=== PATIENT | male | born 1990 | race African-American/Black ===

== ENCOUNTER 2017-03-10 11:24 | Inpatient (IN) | payer OTHER ==
[~2017-03-10] VITALS: Ht 180.3 cm; Wt 67.1 kg
[2017-03-10] MEDS ORDERED: LATUDA20 MG PO (11:26)
[2017-03-10] MEDS ORDERED: GABAPENTIN300 MG ORAL (11:26)
[2017-03-10 11:39] VITALS: BP 126/60
[2017-03-10] MEDS ORDERED: levETIRAcetam 500mg vial IV ONE (11:39)
[2017-03-10] MEDS ORDERED: levETIRAcetam 500 MG in D5W 110 ML IV ONE (11:45)
[2017-03-10 11:57] LABS: BASOPHILS % (AUTO) 3.1 % (0.0-2.0); EOSINOPHILS % (AUTO) 2.4 % (0.0-3.0); MEAN CORPUSCULAR HEMOGLOBIN 28.9 PG (27.0-31.0); MEAN CORPUSCULAR HGB CONC 31.9 G/DL (32.0-36.0); MEAN CORPUSCULAR VOLUME 91 FL (80-99); MEAN PLATELET VOLUME 6.7 FL (6.5-10.1); MONOCYTES % (AUTO) 10.6 % (1.0-10.0); NEUTROPHILS % (AUTO) 42.9 % (45.0-75.0); PLATELET COUNT 248 K/UL (150-450); RED BLOOD COUNT 4.95 M/UL (4.70-6.10); WHITE BLOOD COUNT 4.9 K/UL (4.8-10.8)
[2017-03-10 12:03] VITALS: BP 109/62
[2017-03-10 12:07] LABS: ACETAMINOPHEN < 10 ug/mL (10-30); ALANINE AMINOTRANSFERASE 11 U/L (3-41); ALBUMIN/GLOBULIN RATIO 1.6 (1.0-2.7); ALCOHOL < 10 mg/dL; ANION GAP 18 (5-15); ASPARTATE AMINO TRANSFERASE 21 U/L (5-40); CALCIUM 9.5 mg/dL (8.6-10.2); CARBON DIOXIDE 18 mEQ/L (20-30); CHLORIDE 99 mEQ/L (98-107); CREATININE 1.3 mg/dL (0.7-1.2); GLOMERULAR FILTRATION RATE > 60 mL/min (>60); HEMOLYSIS 81; POTASSIUM 5.3 mEQ/L (3.4-4.9); SODIUM 135 mEQ/L (135-145); TOTAL PROTEIN 7.1 g/dL (6.6-8.7)
[2017-03-10] MEDS ORDERED: KEPPRA500 M4 ORAL (13:24)
[2017-03-10 13:30] VITALS: BP 98/57
[2017-03-10] MEDS ORDERED: Morphine Sulfate 4mg/ml Inj IVP ONE ×2 (14:00→16:00)
[2017-03-10 14:07] LABS: TROPONIN I < 0.30 ng/mL (<=0.30)
[2017-03-10 15:46] VITALS: BP 99/47
[2017-03-10 16:13] LABS: TROPONIN I < 0.30 ng/mL (<=0.30)
[2017-03-10] MEDS ORDERED: Sodium Polystyrene Sulfonate 15gm Powder ORAL ONE (16:30)
--- NOTE | 2017-03-10 16:38 | Emergency Room Report ---
History of Present Illness General Chief Complaint: Seizure Source: Patient, EMS Present Illness HPI 27-year-old male presents ED status post seizure. Patient had witnessed seizure at home which lasted several seconds. patient was sitting did not fall and hit his head. Patient states he takes Keppra for his seizures. Has not missed a dose. Denies any headache, blurry vision, nausea or vomiting. Denies any fevers or chills. Denies drug use. No other aggravating or leading factors. Denies any other associated symptom Allergies: Coded Allergies: PENICILLINS (Verified Allergy, Unknown, 03/10/17) Patient History Past Medical History: seizures, psych hx Past Surgical History: none Pertinent Family History: none Social History: Denies: alcohol use, drug use, smoking Immunizations: UTD Reviewed Nursing Documentation: PMH: Agreed, PSxH: Agreed Nursing Documentation-PMH Past Medical History: No Stated History History Of Psychiatric Problem: Yes - Bipolar Review of Systems All Other Systems: negative except mentioned in HPI Physical Exam Vital Signs Date Time Temp Pulse Resp B/P Pulse Ox O2 Delivery O2 Flow Rate FiO2 03/10/17 11:20 Room Air 03/10/17 11:39 98.7 77 18 126/60 97 Sp02 EP Interpretation: reviewed, normal General Appearance: no apparent distress, alert, GCS 15, non-toxic Head: normocephalic, atraumatic Eyes: bilateral eye PERRL, bilateral eye normal inspection ENT: hearing grossly normal, normal pharynx, no angioedema, normal voice Neck: full range of motion, supple/symm/no masses Respiratory: chest non-tender, lungs clear, normal breath sounds, speaking full sentences Cardiovascular #1: regular rate, rhythm, no edema Cardiovascular #2: 2+ carotid (R), 2+ carotid (L), 2+ radial (R), 2+ radial (L) , 2+ dorsalis pedis (R), 2+ dorsalis pedis (L) Gastrointestinal: normal bowel sounds, non tender, soft, non-distended, no guarding, no rebound Rectal: deferred Genitourinary: normal inspection, no CVA tenderness Musculoskeletal: back normal, gait/station normal, normal range of motion, non- tender Neurologic: alert, oriented x3, responsive, motor strength/tone normal, sensory intact, speech normal Psychiatric: judgement/insight normal, memory normal, mood/affect normal, no suicidal/homicidal ideation Reflexes: 3+ bicep (R), 3+ bicep (L), 3+ tricep (R), 3+ tricep (L), 3+ knee (R) , 3+ knee (L) Skin: normal color, no rash, warm/dry, well hydrated Lymphatic: no adenopathy Medical Decision Making Diagnostic Impression: Primary Impression: Seizure disorder Additional Impressions: Chest pain Qualified Codes: R07.9 - Chest pain, unspecified Hyperkalemia, diminished renal excretion ER Course Hospital Course 27-year-old M presents to ED status post seizure. Differential diagnosis includes- breakthrough seizure, alcohol abuse, noncompliance with medication Clinical course Patient placed on stretcher. Initial history and physical I ordered labs, IV fluids, IV Keppra Labs- K 5.3, Cr 1.3, leukocytosis noted, hemoglobin/hematocrit stable. EKG shows diffuse ST elevation. Pathology consistent with early repolarization. No reciprocal changes. However on reassessment patient is complaining of chest pain. Pain is midsternal, reproducible I sent had an troponins initial labs. Troponin was negative. Repeat troponin is pending Patient given morphine for chest pain but pain persists. We will admit Given Kayexalate Case discussed with Dr. Holguin and he agreed to accept the patient to his service for further care and support. i. I feel this is a highly complex case requiring extensive working including EKG/Rhythm strip, Xray/CT/US, Blood/urine lab work, repeat exams while in ED, and administration of strong opiates/narcotics for pain control, admission to hospital or close patient follow up. Diagnosis - seizure, chest pain, hyperkalemia diminished renal excretion admitted to telemetry in serious condition Labs Test 03/10/17 10:30 03/10/17 14:19 03/10/17 15:45 White Blood Count 4.9 K/UL (4.8-10.8) Red Blood Count 4.95 M/UL (4.70-6.10) Hemoglobin 14.3 G/DL (14.2-18.0) Hematocrit 44.9 % (42.0-52.0) Mean Corpuscular Volume 91 FL (80-99) Mean Corpuscular Hemoglobin 28.9 PG (27.0-31.0) Mean Corpuscular Hemoglobin Concent 31.9 G/DL (32.0-36.0) Red Cell Distribution Width 14.0 % (11.6-14.8) Platelet Count 248 K/UL (150-450) Mean Platelet Volume 6.7 FL (6.5-10.1) Neutrophils (%) (Auto) 42.9 % (45.0-75.0) Lymphocytes (%) (Auto) 41.0 % (20.0-45.0) Monocytes (%) (Auto) 10.6 % (1.0-10.0) Eosinophils (%) (Auto) 2.4 % (0.0-3.0) Basophils (%) (Auto) 3.1 % (0.0-2.0) Sodium Level 135 mEQ/L (135-145) Potassium Level 5.3 mEQ/L (3.4-4.9) Chloride Level 99 mEQ/L (98-107) Carbon Dioxide Level 18 mEQ/L (20-30) Anion Gap 18 (5-15) Blood Urea Nitrogen 11 mg/dL (7-23) Creatinine 1.3 mg/dL (0.7-1.2) Estimat Glomerular Filtration Rate > 60 mL/min (>60) Glucose Level 145 mg/dL (74-106) Calcium Level 9.5 mg/dL (8.6-10.2) Total Bilirubin 0.3 mg/dL (0.0-1.2) Aspartate Amino Transf (AST/SGOT) 21 U/L (5-40) Alanine Aminotransferase (ALT/SGPT) 11 U/L (3-41) Alkaline Phosphatase 53 U/L (40-129) Troponin I < 0.30 ng/mL (<=0.30) < 0.30 ng/mL (<=0.30) Total Protein 7.1 g/dL (6.6-8.7) Albumin 4.4 g/dL (3.5-5.2) Globulin 2.7 g/dL Albumin/Globulin Ratio 1.6 (1.0-2.7) Salicylates Level < 1 mg/dL (10-30) Acetaminophen Level < 10 ug/mL (10-30) Serum Alcohol < 10 mg/dL Urine Opiates Screen Negative (NEGATIVE) Urine Barbiturates Screen Negative (NEGATIVE) Phencyclidine (PCP) Screen Negative (NEGATIVE) Urine Amphetamines Screen Negative (NEGATIVE) Urine Benzodiazepines Screen Negative (NEGATIVE) Urine Cocaine Screen Negative (NEGATIVE) Urine Marijuana (THC) Screen Positive (NEGATIVE) EKG Diagnostic Results Rate: normal Rhythm: NSR ST Segments: other - diffuse ST elevations, early repolarization ASA given to the pt in ED: Yes Rhythm Strip Diag. Results EP Interpretation: yes Rhythm: NSR, no PVC's, no ectopy Chest X-Ray Diagnostic Results Chest X-Ray Diagnostic Results : Chest X-Ray Ordered: Yes # of Views/Limited/Complete: 1 View Indication: Chest Pain EP Interpretation: Yes Interpretation: no consolidation, no effusion, no pneumothorax, no acute cardiopulmonary disease Impression: No acute disease Interpreting ER Provider: Electronically signed by Sean Bautista MD Last Vital Signs Date Time Temp Pulse Resp B/P Pulse Ox O2 Delivery O2 Flow Rate FiO2 03/10/17 15:46 97.8 48 14 99/47 98 Room Air Status: improved Disposition: HOME, SELF-CARE Condition: Stable Scripts Levetiracetam (KEPPRA) 500 Mg Tablet 500 MG ORAL TID for 30 Days, #90 TAB 0 Refills Prov: SEAN BAUTISTA M.D. 03/10/17 Referrals: CHACORTA MONSIVAIS,REFERRI (PCP) Patient Instructions: Seizure, Adult SEAN BAUTISTA M.D. Mar 10, 2017 16:38
[2017-03-10] MEDS ORDERED: Diltiazem 25mg/5ml IV PRN (16:45)
[2017-03-10] MEDS ORDERED: DuoNeb 0.5-3(2.5)mg/3ml neb HHN PRN (16:45)
[2017-03-10] MEDS ORDERED: Miralax 17gm pkt ORAL PRN (16:45)
[2017-03-10] MEDS ORDERED: Enalaprilat 2.5mg/2ml Inj IV PRN (16:45)
[2017-03-10] MEDS ORDERED: Nitroglycerin Subl 0.4mg tab (Bottle Of 25) SL PRN (16:45)
[2017-03-10] MEDS ORDERED: Ketorolac 30mg Inj IV PRN (16:45)
[2017-03-10 17:00] VITALS: BP 100/64
[2017-03-10 18:30] VITALS: BP 94/53
--- NOTE | 2017-03-10 21:03 | Consultation ---
History of Present Illness General Date patient seen: Mar 10, 2017 Chief Complaint: Seizure Reason for Consultation: seizures Present Illness HPI 27-year-old male with PMHx of of seizures presented to ED status post seizure. Patient had witnessed seizure at home which lasted several seconds. patient was sitting did not fall and hit his head. Patient states he takes Keppra for his seizures. No other aggravating or leading factors. Pt is admitted to telemetry . Allergies: Coded Allergies: EGG (Verified Allergy, Unknown, 03/11/17) FISH CONTAINING PRODUCTS (Verified Allergy, Unknown, 03/11/17) PENICILLINS (Verified Allergy, Unknown, 03/10/17) Uncoded Allergies: Mashroom (Allergy, Unknown, 03/11/17) Medication History Scheduled Gabapentin* (Gabapentin*), 300 MG ORAL THREE TIMES A DAY, (Reported) Levetiracetam (Keppra), 500 MG ORAL TID Lurasidone Hcl (Latuda), 20 MG PO BEDTIME, (Reported) Patient History Healthcare decision maker Resuscitation status Advanced Directive on File Past Medical/Surgical History Past Medical/Surgical History: (1) Seizure disorder Review of Systems All Other Systems: negative except mentioned in HPI Physical Exam General Appearance: WD/WN, no apparent distress Lines, tubes and drains: peripheral HEENT: normocephalic, atraumatic Neck: non-tender, normal alignment, supple Respiratory/Chest: chest wall non-tender, lungs clear Cardiovascular/Chest: normal rate Genitourinary/Rectal: normal genital exam, normal rectal exam Extremities: normal range of motion Last 24 Hour Vital Signs Date Time Temp Pulse Resp B/P Pulse Ox O2 Delivery O2 Flow Rate FiO2 03/10/17 20:00 50 15 101/59 100 Room Air 03/10/17 18:30 98.1 50 15 94/53 98 Room Air 03/10/17 17:00 55 16 100/64 100 Room Air 03/10/17 15:46 97.8 48 14 99/47 98 Room Air 03/10/17 14:44 98.7 03/10/17 13:30 53 19 98/57 99 Room Air 03/10/17 12:03 67 18 109/62 99 Room Air 03/10/17 11:39 71 18 Room Air 03/10/17 11:39 98.7 77 18 126/60 97 Room Air 03/10/17 11:20 Room Air Laboratory Tests Test 03/10/17 10:30 03/10/17 14:19 03/10/17 15:45 White Blood Count 4.9 K/UL (4.8-10.8) Red Blood Count 4.95 M/UL (4.70-6.10) Hemoglobin 14.3 G/DL (14.2-18.0) Hematocrit 44.9 % (42.0-52.0) Mean Corpuscular Volume 91 FL (80-99) Mean Corpuscular Hemoglobin 28.9 PG (27.0-31.0) Mean Corpuscular Hemoglobin Concent 31.9 G/DL (32.0-36.0) L Red Cell Distribution Width 14.0 % (11.6-14.8) Platelet Count 248 K/UL (150-450) Mean Platelet Volume 6.7 FL (6.5-10.1) Neutrophils (%) (Auto) 42.9 % (45.0-75.0) L Lymphocytes (%) (Auto) 41.0 % (20.0-45.0) Monocytes (%) (Auto) 10.6 % (1.0-10.0) H Eosinophils (%) (Auto) 2.4 % (0.0-3.0) Basophils (%) (Auto) 3.1 % (0.0-2.0) H Sodium Level 135 mEQ/L (135-145) Potassium Level 5.3 mEQ/L (3.4-4.9) H Chloride Level 99 mEQ/L (98-107) Carbon Dioxide Level 18 mEQ/L (20-30) L Anion Gap 18 (5-15) H Blood Urea Nitrogen 11 mg/dL (7-23) Creatinine 1.3 mg/dL (0.7-1.2) H Estimat Glomerular Filtration Rate > 60 mL/min (>60) Glucose Level 145 mg/dL (74-106) H Calcium Level 9.5 mg/dL (8.6-10.2) Total Bilirubin 0.3 mg/dL (0.0-1.2) Aspartate Amino Transf (AST/SGOT) 21 U/L (5-40) Alanine Aminotransferase (ALT/SGPT) 11 U/L (3-41) Alkaline Phosphatase 53 U/L (40-129) Troponin I < 0.30 ng/mL (<=0.30) < 0.30 ng/mL (<=0.30) Total Protein 7.1 g/dL (6.6-8.7) Albumin 4.4 g/dL (3.5-5.2) Globulin 2.7 g/dL Albumin/Globulin Ratio 1.6 (1.0-2.7) Salicylates Level < 1 mg/dL (10-30) L Acetaminophen Level < 10 ug/mL (10-30) L Serum Alcohol < 10 mg/dL Urine Opiates Screen Negative (NEGATIVE) Urine Barbiturates Screen Negative (NEGATIVE) Phencyclidine (PCP) Screen Negative (NEGATIVE) Urine Amphetamines Screen Negative (NEGATIVE) Urine Benzodiazepines Screen Negative (NEGATIVE) Urine Cocaine Screen Negative (NEGATIVE) Urine Marijuana (THC) Screen Positive (NEGATIVE) H Height (Feet): 5 Height (Inches): 11.00 Weight (Pounds): 160 Medications Current Medications Medications (Trade) Dose Ordered Sig/Robyn Route PRN Reason Start Time Stop Time Status Last Admin Dose Admin Acetaminophen (Tylenol) 650 mg Q4H PRN ORAL FEVER 03/10/17 16:45 04/09/17 16:44 Albuterol/ Ipratropium (DuoNeb 0.5-3(2.5)mg/3ml) 3 ml Q4H PRN HHN Shortness of Breath 03/10/17 16:45 03/15/17 16:44 Aspirin (ASA) 162 mg DAILY ORAL 03/11/17 09:00 04/10/17 08:59 Diltiazem HCl (Cardizem) 10 mg Q1H PRN IV heart rate more than 120, 03/10/17 16:45 04/09/17 16:44 Enalaprilat (Vasotec) 2.5 mg Q6H PRN IV sbp more than 160 03/10/17 16:45 04/09/17 16:44 Heparin Sodium (Porcine) (Heparin 5000 units/ml) 5,000 units EVERY 12 HOURS SUBQ 03/10/17 21:00 04/09/17 20:59 Ketorolac Tromethamine (Toradol 30mg) 30 mg Q6H PRN IV moderate pain ( 4-6) 03/10/17 16:45 03/15/17 16:44 Levetiracetam (Keppra) 500 mg TID ORAL 03/10/17 18:00 04/09/17 17:59 03/10/17 18:47 Morphine Sulfate (Morphine Sulfate) 2 mg Q4H PRN IVP severe Pain (Pain Scale 7-10) 03/10/17 16:45 03/17/17 16:44 Nitroglycerin (Ntg) 0.4 mg Every 5 Minutes PRN SL Prn Chest Pain 03/10/17 16:45 04/09/17 16:44 Ondansetron HCl (Zofran) 4 mg Q6H PRN IVP Nausea & Vomiting 03/10/17 16:45 04/09/17 16:44 Pantoprazole (Protonix) 40 mg DAILY ORAL 03/11/17 09:00 04/10/17 08:59 Polyethylene Glycol (Miralax) 17 gm DAILYPRN PRN ORAL Constipation 03/10/17 16:45 04/09/17 16:44 Temazepam (Restoril) 15 mg HSPRN PRN ORAL Insomnia 03/10/17 16:45 03/17/17 16:44 Assessment/Plan Problem List: (1) Seizure disorder ICD Codes: G40.909 - Epilepsy, unspecified, not intractable, without status epilepticus SNOMED: 154664827 (2) Hyperkalemia, diminished renal excretion ICD Codes: E87.5 - Hyperkalemia SNOMED: [id number] Assessment/Plan Neuro evaluation renal studies echo dc home when ok with neurology NIKKI HERNANDEZ Mar 10, 2017 21:03
[2017-03-10] MEDS: Heparin 5000 units/ml inj SUBQ SCH (22:17)
[2017-03-10] MEDS: Morphine Sulfate 2mg/ml Inj IVP PRN (22:32)
[2017-03-11] VITALS: BP 123/77
--- NOTE | 2017-03-11 03:45 | Consultation ---
DATE OF CONSULTATION: 03/10/2017 NEPHROLOGY CONSULTATION REFERRING PHYSICIAN: Peter Holguin D.O. REASON FOR CONSULTATION: Hyperkalemia and acute renal failure. HISTORY OF PRESENT ILLNESS: The patient is a 27-year-old male with past medical history significant for history of seizure disorder and possible bipolar disease, who presented to [facility] after he had witnessed few second tonoclonic seizure. The patient apparently has been taking his antiseizure medication including Keppra . He was brought in to the ER for evaluation of breakthrough seizures. He denies having any nausea, vomiting, blurry vision, fever, chills, headache, neck stiffness, or any other symptoms prior to his seizure. PAST MEDICAL HISTORY: 1. History of seizure. 2. History of bipolar disease. ALLERGIES: He is allergic to penicillin. SOCIAL HISTORY: Denies any history of tobacco, alcohol, or drug use. FAMILY HISTORY: Negative for history of kidney disease. REVIEW OF SYSTEMS: General: He complained of generalized weakness. Denied any fever, chills, or night sweats. Head and Neck: Denies any dysphagia, odynophagia, blurry vision, headache, or neck stiffness. Pulmonary: No shortness of breath. No cough or sputum. Cardiovascular: Denies any chest pain or palpitation. Gastrointestinal: Denies any nausea, vomiting, diarrhea, hematemesis, or hematochezia. Genitourinary: Denies any dysuria, frequency, or hematuria. Musculoskeletal: He complained of generalized weakness. Denies any numbness. PHYSICAL EXAMINATION: VITAL SIGNS: The patient has temperature of 98 degrees, blood pressure of 126/60, pulse rate of 97, and respiratory rate of 18. HEAD AND NECK: No JVP. No LAD. No thyromegaly. Extraocular movement intact. Pupils are reactive to light and accommodation. LUNGS: Clear to auscultation. CARDIAC: Regular rate and rhythm. S1 and S2. No murmur. No rub. ABDOMEN: Soft, nontender, and nondistended. EXTREMITIES: No edema. No clubbing. No cyanosis. LABORATORY DATA: Sodium 135, potassium 5.3, chloride 99, bicarbonate 18, BUN 11, creatinine 1.3, glucose 145, and calcium of 9.5. AST of 21, ALT of 11, and alkaline phosphatase 53. Total protein of 7.1. Albumin of 4.4. CBC revealed WBC count of 4.9, hemoglobin of 14.6, hematocrit of 44, and platelet count of 248,000. Urine toxicology screen is negative. Tylenol is negative. is positive. Alcohol is negative and everything else is negative. ASSESSMENT: 1. Hypernatremia. 2. Acute renal failure. ____ acute episode of tonic colonic seizure acidosis, hyperkalemia, and acute renal failure, they are the possibility of prerenal azotemia. 3. History of breakthrough seizure. PLAN: To obtain a UA. Check the CPK level. Check the urine potassium and urine osmolarity to calculate transtubular potassium gradient. To differentiate GI versus renal loss of the potassium. I would place the patient on low-potassium diet, to start the patient on IV fluids. Check a CPK level. Check the UA. Again, I would like to thank Dr. Holguin for allowing me to participate in the care of this patient. Yesenia Sandhu M.D. DR: LETICIA JOB#: [id number] CC:
[2017-03-11 08:00] VITALS: BP 125/71
[2017-03-11 08:08] LABS: BASOPHILS % (AUTO) 1.6 % (0.0-2.0); EOSINOPHILS % (AUTO) 2.9 % (0.0-3.0); MEAN CORPUSCULAR HEMOGLOBIN 29.4 PG (27.0-31.0); MEAN CORPUSCULAR HGB CONC 32.8 G/DL (32.0-36.0); MEAN CORPUSCULAR VOLUME 90 FL (80-99); MEAN PLATELET VOLUME 7.2 FL (6.5-10.1); MONOCYTES % (AUTO) 12.4 % (1.0-10.0); NEUTROPHILS % (AUTO) 38.1 % (45.0-75.0); PLATELET COUNT 219 K/UL (150-450); RED CELL DISTRIBUTION WIDTH 13.6 % (11.6-14.8)
[2017-03-11 08:25] LABS: PROTHROMBIN TIME 10.5 SEC (9.30-11.50)
[2017-03-11 08:36] LABS: TROPONIN I < 0.30 ng/mL (<=0.30)
[2017-03-11 08:40] LABS: THYROID STIMULATING HORMONE 0.875 uIU/mL (0.300-4.500)
[2017-03-11 08:42] LABS: CHOLESTEROL 103 mg/dL (< 200); CHOLESTEROL/HDL RATIO 2.5 (3.3-4.4); CRP QUANT < 0.3 mg/dL (< 0.5); HEMOLYSIS 3; LDL CHOLESTEROL (CALC.) 46 mg/dL (60-99)
[2017-03-11] MEDS ORDERED: Aspirin Baby 81mg ORAL SCH (09:00)
[2017-03-11] MEDS: Morphine Sulfate 2mg/ml Inj IVP PRN ×2 (09:24→20:45)
[2017-03-11] MEDS: Heparin 5000 units/ml inj SUBQ SCH ×2 (09:26→21:00)
--- NOTE | 2017-03-11 10:32 | Diagnostic Imaging Report ---
Indication: Chest pain Technique: One view of the chest Comparison: none Findings: Lungs and pleural spaces are clear. The heart is borderline enlarged. Impression: Borderline cardiomegaly No acute cardiopulmonary process
--- NOTE | 2017-03-11 11:21 | Pulmonology Progress Note ---
Assessment/Plan Problems: (1) Seizure disorder (2) Hyperkalemia, diminished renal excretion Assessment/Plan all reviewed renal studies in process awaiting neuro evaluation Subjective ROS Limited/Unobtainable: No Constitutional: Reports: no symptoms HEENT: Repors: no symptoms Respiratory: Reports: no symptoms Allergies: Coded Allergies: EGG (Verified Allergy, Unknown, 03/11/17) FISH CONTAINING PRODUCTS (Verified Allergy, Unknown, 03/11/17) PENICILLINS (Verified Allergy, Unknown, 03/10/17) Uncoded Allergies: Mashroom (Allergy, Unknown, 03/11/17) Objective Last 24 Hour Vital Signs Date Time Temp Pulse Resp B/P Pulse Ox O2 Delivery O2 Flow Rate FiO2 03/11/17 08:00 97.8 71 21 125/71 96 Room Air 03/11/17 04:00 50 03/11/17 00:00 97.3 53 20 123/77 100 Room Air 03/11/17 00:00 79 03/10/17 20:59 52 03/10/17 20:00 50 15 101/59 100 Room Air 03/10/17 18:30 98.1 50 15 94/53 98 Room Air 03/10/17 17:00 55 16 100/64 100 Room Air 03/10/17 15:46 97.8 48 14 99/47 98 Room Air 03/10/17 14:44 98.7 03/10/17 13:30 53 19 98/57 99 Room Air 03/10/17 12:03 67 18 109/62 99 Room Air 03/10/17 11:39 71 18 Room Air 03/10/17 11:39 98.7 77 18 126/60 97 Room Air Intake and Output 03/10/17 03/11/17 19:00 07:00 Intake Total 225 ml Balance 225 ml Intake Oral 120 ml IV Total 105 ml # Voids 2 General Appearance: WD/WN, no acute distress HEENT: atraumatic, PERRL Respiratory/Chest: chest wall non-tender, lungs clear Cardiovascular: normal peripheral pulses, normal rate Abdomen: normal bowel sounds, soft, non tender, no scars Extremities: no cyanosis, no clubbing Skin: no rash Laboratory Tests 03/10/17 14:19: Urine Opiates Screen Negative, Urine Barbiturates Screen Negative, Phencyclidine (PCP) Screen Negative, Urine Amphetamines Screen Negative, Urine Benzodiazepines Screen Negative, Urine Cocaine Screen Negative, Urine Marijuana (THC) Screen PositiveH 03/10/17 15:45: Troponin I < 0.30 03/11/17 07:15: Troponin I < 0.30, White Blood Count 5.0, Red Blood Count 4.50L, Hemoglobin 13.2L, Hematocrit 40.4L, Mean Corpuscular Volume 90, Mean Corpuscular Hemoglobin 29.4, Mean Corpuscular Hemoglobin Concent 32.8, Red Cell Distribution Width 13.6, Platelet Count 219, Mean Platelet Volume 7.2, Neutrophils (%) (Auto) 38.1L, Lymphocytes (%) (Auto) 45.0, Monocytes (%) (Auto) 12.4H, Eosinophils (%) (Auto) 2.9, Basophils (%) (Auto) 1.6, Prothrombin Time 10.5, Prothromb Time International Ratio 1.0, Activated Partial Thromboplast Time 31, C-Reactive Protein, Quantitative < 0.3, Triglycerides Level 80, Cholesterol Level 103, LDL Cholesterol 46L, HDL Cholesterol 41, Cholesterol/HDL Ratio 2.5L, Thyroid Stimulating Hormone (TSH) 0.875 Current Medications Medications (Trade) Dose Ordered Sig/Robyn Route PRN Reason Start Time Stop Time Status Last Admin Dose Admin Acetaminophen (Tylenol) 650 mg Q4H PRN ORAL FEVER 03/10/17 16:45 04/09/17 16:44 03/11/17 02:07 Albuterol/ Ipratropium (DuoNeb 0.5-3(2.5)mg/3ml) 3 ml Q4H PRN HHN Shortness of Breath 03/10/17 16:45 03/15/17 16:44 Aspirin (ASA) 162 mg DAILY ORAL 03/11/17 09:00 04/10/17 08:59 03/11/17 09:22 Diltiazem HCl (Cardizem) 10 mg Q1H PRN IV heart rate more than 120, 03/10/17 16:45 04/09/17 16:44 Enalaprilat (Vasotec) 2.5 mg Q6H PRN IV sbp more than 160 03/10/17 16:45 04/09/17 16:44 Heparin Sodium (Porcine) (Heparin 5000 units/ml) 5,000 units EVERY 12 HOURS SUBQ 03/10/17 21:00 04/09/17 20:59 03/11/17 09:26 Ketorolac Tromethamine (Toradol 30mg) 30 mg Q6H PRN IV moderate pain ( 4-6) 03/10/17 16:45 03/15/17 16:44 Levetiracetam (Keppra) 500 mg TID ORAL 03/10/17 18:00 04/09/17 17:59 03/11/17 09:22 Morphine Sulfate (Morphine Sulfate) 2 mg Q4H PRN IVP severe Pain (Pain Scale 7-10) 03/10/17 16:45 03/17/17 16:44 03/11/17 09:24 Nitroglycerin (Ntg) 0.4 mg Every 5 Minutes PRN SL Prn Chest Pain 03/10/17 16:45 04/09/17 16:44 Ondansetron HCl (Zofran) 4 mg Q6H PRN IVP Nausea & Vomiting 03/10/17 16:45 04/09/17 16:44 Pantoprazole (Protonix) 40 mg DAILY ORAL 03/11/17 09:00 04/10/17 08:59 03/11/17 09:22 Polyethylene Glycol (Miralax) 17 gm DAILYPRN PRN ORAL Constipation 03/10/17 16:45 04/09/17 16:44 Temazepam (Restoril) 15 mg HSPRN PRN ORAL Insomnia 03/10/17 16:45 03/17/17 16:44 NIKKI HERNANDEZ Mar 11, 2017 11:21
[2017-03-11 12:00] VITALS: BP 122/72
--- NOTE | 2017-03-11 12:37 | Neurology Progress Note ---
Interim History Interim History ROS Limited/Unobtainable: No Objective Physical Exam Last Vital Signs Date Time Temp Pulse Resp B/P Pulse Ox O2 Delivery O2 Flow Rate FiO2 03/11/17 12:00 97.0 67 19 122/72 98 Room Air Laboratory Tests Test 03/10/17 14:19 03/10/17 15:45 03/11/17 07:15 Urine Opiates Screen Negative (NEGATIVE) Urine Barbiturates Screen Negative (NEGATIVE) Phencyclidine (PCP) Screen Negative (NEGATIVE) Urine Amphetamines Screen Negative (NEGATIVE) Urine Benzodiazepines Screen Negative (NEGATIVE) Urine Cocaine Screen Negative (NEGATIVE) Urine Marijuana (THC) Screen Positive (NEGATIVE) H Troponin I < 0.30 ng/mL (<=0.30) < 0.30 ng/mL (<=0.30) White Blood Count 5.0 K/UL (4.8-10.8) Red Blood Count 4.50 M/UL (4.70-6.10) L Hemoglobin 13.2 G/DL (14.2-18.0) L Hematocrit 40.4 % (42.0-52.0) L Mean Corpuscular Volume 90 FL (80-99) Mean Corpuscular Hemoglobin 29.4 PG (27.0-31.0) Mean Corpuscular Hemoglobin Concent 32.8 G/DL (32.0-36.0) Red Cell Distribution Width 13.6 % (11.6-14.8) Platelet Count 219 K/UL (150-450) Mean Platelet Volume 7.2 FL (6.5-10.1) Neutrophils (%) (Auto) 38.1 % (45.0-75.0) L Lymphocytes (%) (Auto) 45.0 % (20.0-45.0) Monocytes (%) (Auto) 12.4 % (1.0-10.0) H Eosinophils (%) (Auto) 2.9 % (0.0-3.0) Basophils (%) (Auto) 1.6 % (0.0-2.0) Prothrombin Time 10.5 SEC (9.30-11.50) Prothromb Time International Ratio 1.0 (0.9-1.1) Activated Partial Thromboplast Time 31 SEC (23-33) C-Reactive Protein, Quantitative < 0.3 mg/dL (< 0.5) Triglycerides Level 80 mg/dL (< 150) Cholesterol Level 103 mg/dL (< 200) LDL Cholesterol 46 mg/dL (60-99) L HDL Cholesterol 41 mg/dL (> 60) Cholesterol/HDL Ratio 2.5 (3.3-4.4) L Thyroid Stimulating Hormone (TSH) 0.875 uIU/mL (0.300-4.500) Impression/Recommendations Recommendations # [id number] MIGNON LARSON Mar 11, 2017 12:37
--- NOTE | 2017-03-11 15:42 | Nephrology Progress Note ---
Assessment/Plan Assessment 1.hyperkalemia 2.arf 3.sz Subjective Constitutional: Reports: no symptoms HEENT: Reports: no symptoms Genitourinary: Reports: no symptoms Neurologic/Psychiatric: Reports: tingling Subjective alert and awake no sz since admission Objective Objective Last 24 Hour Vital Signs Date Time Temp Pulse Resp B/P Pulse Ox O2 Delivery O2 Flow Rate FiO2 03/11/17 13:32 55 03/11/17 12:00 97.0 67 19 122/72 98 Room Air 03/11/17 08:00 50 03/11/17 08:00 97.8 71 21 125/71 96 Room Air 03/11/17 04:00 50 03/11/17 00:00 97.3 53 20 123/77 100 Room Air 03/11/17 00:00 79 03/10/17 20:59 52 03/10/17 20:00 50 15 101/59 100 Room Air 03/10/17 18:30 98.1 50 15 94/53 98 Room Air 03/10/17 17:00 55 16 100/64 100 Room Air 03/10/17 15:46 97.8 48 14 99/47 98 Room Air Intake and Output 03/10/17 03/11/17 19:00 07:00 Intake Total 225 ml Balance 225 ml Intake Oral 120 ml IV Total 105 ml # Voids 2 Laboratory Tests 03/10/17 15:45: Troponin I < 0.30 03/11/17 07:15: Troponin I < 0.30, White Blood Count 5.0, Red Blood Count 4.50L, Hemoglobin 13.2L, Hematocrit 40.4L, Mean Corpuscular Volume 90, Mean Corpuscular Hemoglobin 29.4, Mean Corpuscular Hemoglobin Concent 32.8, Red Cell Distribution Width 13.6, Platelet Count 219, Mean Platelet Volume 7.2, Neutrophils (%) (Auto) 38.1L, Lymphocytes (%) (Auto) 45.0, Monocytes (%) (Auto) 12.4H, Eosinophils (%) (Auto) 2.9, Basophils (%) (Auto) 1.6, Prothrombin Time 10.5, Prothromb Time International Ratio 1.0, Activated Partial Thromboplast Time 31, C-Reactive Protein, Quantitative < 0.3, Triglycerides Level 80, Cholesterol Level 103, LDL Cholesterol 46L, HDL Cholesterol 41, Cholesterol/HDL Ratio 2.5L, Thyroid Stimulating Hormone (TSH) 0.875 Height (Feet): 5 Height (Inches): 11.00 Weight (Pounds): 148 Objective HEAD AND NECK: No JVP. No LAD. No thyromegaly. Extraocular movement intact. Pupils are reactive to light and accommodation. LUNGS: Clear to auscultation. CARDIAC: Regular rate and rhythm. S1 and S2. No murmur. No rub. ABDOMEN: Soft, nontender, and nondistended. EXTREMITIES: No edema. No clubbing. No cyanosis. LINDSAY NEVAREZ Mar 11, 2017 15:42
[2017-03-11 16:00] VITALS: BP 101/54
--- NOTE | 2017-03-11 17:17 | Diagnostic Imaging Report ---
Indication: Abnormal renal function tests Technique: Grayscale and duplex images of the kidneys, retroperitoneum, and bladder were obtained. Comparison:None Findings: Right kidney measures 12 cm in length. Left kidney measures 11 cm in length. Both kidneys demonstrate normal echogenicity. No hydronephrosis. No focal abnormality. Normal inferior vena cava. Bladder is normal. Impression: negative.
--- NOTE | 2017-03-11 17:56 | Cardiology Report ---
APPROVED REPORT EXAM: Two-dimensional and M-mode echocardiogram with Doppler and color Doppler. INDICATION LV function M-Mode DIMENSIONS IVSd1.9 (0.7-1.1cm)Left Atrium (MM)2.6 (1.6-4.0cm) LVDd4.4 (3.5-5.6cm)Aortic Root2.8 (2.0-3.7cm) PWd1.7 (0.7-1.1cm)Aortic Cusp Exc.2.4 (1.5-2.0cm) IVSs2.3 cm LVDs3.4 (2.5-4.0cm) PWs1.9 cm Normal left ventricular chamber size. Mild left ventricular wall hypokinesia with left ventricular ejection fraction estimated to be 45-50%. Mild left ventricular hypertrophy. Anterior Echo-free space, may be due to pericardial fat or effusion. Right ventricular chamber size is within normal limits. Mild focal aortic valve sclerosis with adequate cusp excursion. Mildly thickened mitral valve leaflets with normal excursion. Mitral annulus and aortic root calcification. Normal pulmonic valve structure. Normal tricuspid valve structure. IVC not obtainable. A color flow and spectral Doppler study was performed and revealed: Mild aortic regurgitation. Mild mitral regurgitation. Mitral inflow indicates normal left ventricular diastolic function. Mild tricuspid regurgitation. Tricuspid systolic velocities suggests peak right ventricular systolic pressure of 33 mmHg. Moderate 2 separate jets of pulmonic regurgitation.
--- NOTE | 2017-03-11 18:12 | Cardiology Report ---
APPROVED REPORT EKG Measurement Heart [id number] Sinus bradycardia ST elevation, probably due to early repolarization Borderline ECG
--- NOTE | 2017-03-11 18:59 | Cardiology Progress Note ---
Assessment/Plan Assessment/Plan The patient is seen and examined, full consult will be dictated shortly. Objective Last 24 Hour Vital Signs Date Time Temp Pulse Resp B/P Pulse Ox O2 Delivery O2 Flow Rate FiO2 03/11/17 16:00 97.9 48 20 101/54 98 Room Air 03/11/17 13:32 55 03/11/17 12:00 97.0 67 19 122/72 98 Room Air 03/11/17 08:00 50 03/11/17 08:00 97.8 71 21 125/71 96 Room Air 03/11/17 04:00 50 03/11/17 00:00 97.3 53 20 123/77 100 Room Air 03/11/17 00:00 79 03/10/17 20:59 52 03/10/17 20:00 50 15 101/59 100 Room Air Intake and Output 03/10/17 03/11/17 19:00 07:00 Intake Total 225 ml Balance 225 ml Intake Oral 120 ml IV Total 105 ml # Voids 2 Laboratory Tests Test 03/11/17 07:15 White Blood Count 5.0 K/UL (4.8-10.8) Red Blood Count 4.50 M/UL (4.70-6.10) L Hemoglobin 13.2 G/DL (14.2-18.0) L Hematocrit 40.4 % (42.0-52.0) L Mean Corpuscular Volume 90 FL (80-99) Mean Corpuscular Hemoglobin 29.4 PG (27.0-31.0) Mean Corpuscular Hemoglobin Concent 32.8 G/DL (32.0-36.0) Red Cell Distribution Width 13.6 % (11.6-14.8) Platelet Count 219 K/UL (150-450) Mean Platelet Volume 7.2 FL (6.5-10.1) Neutrophils (%) (Auto) 38.1 % (45.0-75.0) L Lymphocytes (%) (Auto) 45.0 % (20.0-45.0) Monocytes (%) (Auto) 12.4 % (1.0-10.0) H Eosinophils (%) (Auto) 2.9 % (0.0-3.0) Basophils (%) (Auto) 1.6 % (0.0-2.0) Prothrombin Time 10.5 SEC (9.30-11.50) Prothromb Time International Ratio 1.0 (0.9-1.1) Activated Partial Thromboplast Time 31 SEC (23-33) Troponin I < 0.30 ng/mL (<=0.30) C-Reactive Protein, Quantitative < 0.3 mg/dL (< 0.5) Triglycerides Level 80 mg/dL (< 150) Cholesterol Level 103 mg/dL (< 200) LDL Cholesterol 46 mg/dL (60-99) L HDL Cholesterol 41 mg/dL (> 60) Cholesterol/HDL Ratio 2.5 (3.3-4.4) L Thyroid Stimulating Hormone (TSH) 0.875 uIU/mL (0.300-4.500) LISBETH DOVE Mar 11, 2017 18:59
[2017-03-11 20:00] VITALS: BP 123/65
[2017-03-11] MEDS ORDERED: DuoNeb 0.5-3(2.5)mg/3ml neb HHN PRN (21:30)
[2017-03-11] MEDS ORDERED: Enalaprilat 2.5mg/2ml Inj IV PRN (21:30)
[2017-03-11] MEDS ORDERED: Miralax 17gm pkt ORAL PRN (21:30)
[2017-03-11] MEDS ORDERED: Nitroglycerin Subl 0.4mg tab (Bottle Of 25) SL PRN (21:30)
--- NOTE | 2017-03-11 21:30 | History and Physical Report ---
DATE OF ADMISSION: 03/10/2017 TIME SEEN: 1 p.m. CONSULTANTS: 1. Melchor Cuellar M.D. 2. . 3. Farrukh Billingsley M.D. 4. Yesenia Sandhu M.D. 5. Nasir Rodrigues M.D. CHIEF COMPLAINT: Chest pain, renal insufficiency, seizure. BRIEF HISTORY: This is a 27-year-old male who has history of seizure, has one yesterday, afterwards he had some slight chest pain, came into the [facility], diagnosed with chest pain, hyperkalemia, renal insufficiency, seizure, and possible pericarditis, and admitted to telemetry for further care. Currently calm in bed, no complaints. No chest pain. No shortness of breath. No nausea, vomiting, or diarrhea. PAST MEDICAL HISTORY: Seizure. PAST SURGICAL HISTORY: Leg surgery. MEDICATIONS: Keppra, aspirin, Protonix, heparin, DuoNeb, nitroglycerin, Tylenol, Toradol, morphine, MiraLAX, Zofran, Restoril, Vasotec, Cardizem. ALLERGIES: Penicillin. SOCIAL HISTORY: Positive smoking. No alcohol. Positive marijuana use. PHYSICAL EXAMINATION: GENERAL: Calm in bed, oriented x3, in no acute distress. VITAL SIGNS: Temperature is 97 degrees, pulse 55, respirations 19, and blood pressure 122/72. CARDIOVASCULAR: No murmurs. LUNGS: Distant and clear. ABDOMEN: Positive bowel sounds. Soft, nontender, and nondistended. EXTREMITIES: No cyanosis, clubbing, or edema. NEUROLOGIC: Cranial nerves II through XII are grossly intact. Deep tendon reflexes are +2. Muscle strength is 4/5. LABORATORY AND DIAGNOSTIC DATA: Hemoglobin 13.2, otherwise CBC is normal. BMP show potassium 5.3, bicarb 18, creatinine 1.3, glucose 145. INR 1.0. Urine toxicology is positive for marijuana, otherwise negative. ASSESSMENT: 1. Chest pain, possible pericarditis. 2. Hyperkalemia. 3. Diabetes. 4. . 5. Seizure. PLAN: 1. Continue premedications. 2. Blood pressure, blood sugar, and seizure control. 3. Dietary followup. 4. Nephrology followup. 5. CBC and BMP in the morning. 6. We will continue to follow this patient medically. Peter Holguin D.O. DR: Barb JOB#: [id number] CC:
[2017-03-11] MEDS ORDERED: Diltiazem 25mg/5ml IV PRN (21:45)
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
[2017-03-11] MEDS ORDERED: Ketorolac 30mg Inj IV PRN (22:45)
--- NOTE | 2017-03-11 23:40 | Infectious Diseases Prog Note ---
Assessment/Plan Problems: (1) Seizure disorder Assessment & Plan: No evidence of sepsis. Follow-up cultures. Monitor off antibiotics. (2) Polysubstance abuse Assessment & Plan: Follow-up HIV serology. (3) Penicillin allergy Assessment & Plan: Severe. SOB. Subjective Allergies: Coded Allergies: EGG (Verified Allergy, Unknown, 03/11/17) FISH CONTAINING PRODUCTS (Verified Allergy, Unknown, 03/11/17) PENICILLINS (Verified Allergy, Unknown, 03/10/17) Uncoded Allergies: Mashroom (Allergy, Unknown, 03/11/17) Objective Vital Signs Last 24 Hour Vital Signs Date Time Temp Pulse Resp B/P Pulse Ox O2 Delivery O2 Flow Rate FiO2 03/11/17 20:00 60 03/11/17 20:00 97.9 56 18 123/65 99 Room Air 03/11/17 16:12 49 03/11/17 16:00 97.9 48 20 101/54 98 Room Air 03/11/17 13:32 55 03/11/17 12:00 97.0 67 19 122/72 98 Room Air 03/11/17 08:00 50 03/11/17 08:00 97.8 71 21 125/71 96 Room Air 03/11/17 04:00 50 03/11/17 00:00 97.3 53 20 123/77 100 Room Air 03/11/17 00:00 79 Height (Feet): 5 Height (Inches): 11.00 Weight (Pounds): 148 Laboratory Tests Test 03/11/17 07:15 White Blood Count 5.0 K/UL (4.8-10.8) Red Blood Count 4.50 M/UL (4.70-6.10) L Hemoglobin 13.2 G/DL (14.2-18.0) L Hematocrit 40.4 % (42.0-52.0) L Mean Corpuscular Volume 90 FL (80-99) Mean Corpuscular Hemoglobin 29.4 PG (27.0-31.0) Mean Corpuscular Hemoglobin Concent 32.8 G/DL (32.0-36.0) Red Cell Distribution Width 13.6 % (11.6-14.8) Platelet Count 219 K/UL (150-450) Mean Platelet Volume 7.2 FL (6.5-10.1) Neutrophils (%) (Auto) 38.1 % (45.0-75.0) L Lymphocytes (%) (Auto) 45.0 % (20.0-45.0) Monocytes (%) (Auto) 12.4 % (1.0-10.0) H Eosinophils (%) (Auto) 2.9 % (0.0-3.0) Basophils (%) (Auto) 1.6 % (0.0-2.0) Prothrombin Time 10.5 SEC (9.30-11.50) Prothromb Time International Ratio 1.0 (0.9-1.1) Activated Partial Thromboplast Time 31 SEC (23-33) Troponin I < 0.30 ng/mL (<=0.30) C-Reactive Protein, Quantitative < 0.3 mg/dL (< 0.5) Triglycerides Level 80 mg/dL (< 150) Cholesterol Level 103 mg/dL (< 200) LDL Cholesterol 46 mg/dL (60-99) L HDL Cholesterol 41 mg/dL (> 60) Cholesterol/HDL Ratio 2.5 (3.3-4.4) L Thyroid Stimulating Hormone (TSH) 0.875 uIU/mL (0.300-4.500) Current Medications Medications (Trade) Dose Ordered Sig/Robyn Route PRN Reason Start Time Stop Time Status Last Admin Dose Admin Acetaminophen (Tylenol) 650 mg Q4H PRN ORAL FEVER 03/11/17 21:30 04/10/17 21:29 Albuterol/ Ipratropium (DuoNeb 0.5-3(2.5)mg/3ml) 3 ml Q4H PRN HHN Shortness of Breath 03/11/17 21:30 03/16/17 21:29 Aspirin (ASA) 162 mg DAILY ORAL 03/12/17 09:00 04/11/17 08:59 Diltiazem HCl (Cardizem) 10 mg Q1H PRN IV HR > 120 03/11/17 21:45 04/10/17 21:44 Enalaprilat (Vasotec) 2.5 mg Q6H PRN IV SBP > 160 03/11/17 21:30 04/10/17 21:29 Heparin Sodium (Porcine) (Heparin 5000 units/ml) 5,000 units EVERY 12 HOURS SUBQ 03/11/17 21:00 04/10/17 20:59 Levetiracetam (Keppra) 1,000 mg TID ORAL 03/11/17 22:00 04/10/17 21:59 03/11/17 23:12 Morphine Sulfate (Morphine Sulfate) 2 mg Q4H PRN IVP severe Pain (Pain Scale 7-10) 03/11/17 21:30 03/18/17 21:29 Nitroglycerin (Ntg) 0.4 mg Every 5 Minutes PRN SL Prn Chest Pain 03/11/17 21:30 04/10/17 21:29 Ondansetron HCl (Zofran) 4 mg Q6H PRN IVP Nausea & Vomiting 03/11/17 21:30 04/10/17 21:29 Pantoprazole (Protonix) 40 mg DAILY ORAL 03/12/17 09:00 04/11/17 08:59 Polyethylene Glycol (Miralax) 17 gm DAILYPRN PRN ORAL Constipation 03/11/17 21:30 04/10/17 21:29 Temazepam (Restoril) 15 mg HSPRN PRN ORAL Insomnia 03/11/17 21:30 03/18/17 21:29 TRENT EDWARD Mar 11, 2017 23:40
[2017-03-12] MEDS: Morphine Sulfate 2mg/ml Inj IVP PRN ×3 (00:08→09:04)
[2017-03-12 00:35] VITALS: BP 116/69
--- NOTE | 2017-03-12 03:30 | Consultation ---
DATE OF CONSULTATION: 03/11/2017 CARDIOLOGY CONSULTATION REFERRING PHYSICIAN: Peter Holguin D.O. REASON FOR CONSULTATION: Management of chest pain. HISTORY OF PRESENT ILLNESS: The patient is a very unfortunate 27-year-old gentleman who presents to the hospital following an episode of witnessed seizure at home. The patient on arrival to the hospital had some complaint of chest pain, which is felt to be musculoskeletal. On arrival to the emergency department, blood pressure was 126/60 and pulse of 77. A 12-lead electrocardiogram reveals sinus bradycardia at a rate of 49 with early repolarization. The patient was admitted to telemetry for further evaluation and management. ALLERGIES: Penicillin. PAST MEDICAL HISTORY: Seizure disorder and psych disorder. PAST SURGICAL HISTORY: None. FAMILY HISTORY: No premature coronary artery disease in first-degree relatives. SOCIAL HISTORY: Denies any tobacco, alcohol, or illicit drug use. REVIEW OF SYSTEMS: A 12-system review done essentially negative except what is mentioned in the history of present illness. MEDICATIONS: List of medication at home include gabapentin 300 mg three times a day, Keppra 500 mg three times a day, and Latuda 20 mg p.o. nightly. PHYSICAL EXAMINATION: GENERAL: The patient is a very unfortunate 27-year-old gentleman, in no apparent respiratory distress. Alert and oriented x4. VITAL SIGNS: At the time of arrival to the hospital, blood pressure is 123/60, pulse of 77, respirations of 18, and temperature 98.7 degrees Fahrenheit. HEENT: Atraumatic, normocephalic. Anicteric. Pupils are equal, round, and reactive to light and accommodation. Extraocular muscle intact. NECK: JVP is less than 5 cm. No carotid bruits. Carotid upstrokes 2+ bilaterally. CARDIOVASCULAR: Normal S1 and S2. Regular rate and rhythm. No murmurs, gallops, or rubs. PMI is at fourth intercostal space at the midclavicular line. LUNGS: Clear to auscultation bilaterally. ABDOMEN: Soft, nontender, and nondistended. No hepatosplenomegaly. Positive bowel sounds. EXTREMITIES: No evidence of edema, clubbing, or cyanosis. LABORATORY AND DIAGNOSTIC DATA: A 12-lead electrocardiogram shows sinus bradycardia at a rate of 49 with early repolarization. No criteria for ST-elevation myocardial infarction. Laboratory findings, WBC 4.9, hemoglobin 14.3, hematocrit of 44.9, and platelet count is 248,000. Sodium is 135, potassium is 4.3, chloride 99, bicarbonate is 18, BUN of 11, creatinine 1.3, glucose 145, and calcium is 9.5. Troponin I x3 negative. Lipid panel shows triglycerides 80, cholesterol 103, LDL of 46, and HDL of 41. Toxicology showed positive marijuana in the urine. INR is 1. Chest x-ray showed no acute cardiopulmonary disease. A 2D echocardiography showed mild left septal wall hypokinesia with left ventricular ejection fraction approximately 45% to 50%, mild LVH. Right ventricular systolic pressure measured at 33 mmHg. ASSESSMENT AND PLAN: This is a 27-year-old gentleman admitted to the hospital with seizure activity, seen in Cardiology consultation at the request of Dr. Holguin. 1. Noncardiac chest pain. A 2D echocardiography shows no wall motion abnormalities with left ventricular ejection slightly below normal at 45% to 50%, this could be due to his underlying left ventricular hypertrophy and no further cardiac intervention is required at this time. Chest pain is most likely due to musculoskeletal tenderness criteria during the seizure activity. The patient does not have any risk factors for coronary artery disease. A 12-lead electrocardiogram does not show any evidence of ischemia. 2. Renal failure with creatinine baseline at 1.3. I would like to thank, Dr. Holguin, for allowing me to participate in the care of this patient. Farrukh Billingsley M.D. DR: Isidoro JOB#: [id number] CC:
[2017-03-12 04:00] VITALS: BP 120/74
[2017-03-12 05:54] LABS: MEAN CORPUSCULAR HEMOGLOBIN 29.4 PG (27.0-31.0); MEAN CORPUSCULAR VOLUME 89 FL (80-99); MEAN PLATELET VOLUME 6.3 FL (6.5-10.1); PLATELET COUNT 237 K/UL (150-450); RED BLOOD COUNT 4.74 M/UL (4.70-6.10); RED CELL DISTRIBUTION WIDTH 13.8 % (11.6-14.8); WHITE BLOOD COUNT 4.6 K/UL (4.8-10.8)
[2017-03-12 06:27] LABS: TROPONIN I < 0.30 ng/mL (<=0.30)
[2017-03-12 06:28] LABS: ANION GAP 11 (5-15); CALCIUM 9.3 mg/dL (8.6-10.2); CARBON DIOXIDE 28 mEQ/L (20-30); CHLORIDE 103 mEQ/L (98-107); GLOMERULAR FILTRATION RATE > 60 mL/min (>60); HEMOLYSIS 5; POTASSIUM 3.8 mEQ/L (3.4-4.9); SODIUM 142 mEQ/L (135-145)
[2017-03-12 08:00] VITALS: BP 117/66
[2017-03-12] MEDS ORDERED: Aspirin Baby 81mg ORAL SCH (09:00)
[2017-03-12] MEDS: Heparin 5000 units/ml inj SUBQ SCH (09:12)
--- NOTE | 2017-03-12 09:23 | Nephrology Progress Note ---
Assessment/Plan Assessment 1.hyperkalemia 2.arf 3.sz Plan plan low k diet monitoring renal function avoid NSAID Subjective Constitutional: Reports: no symptoms HEENT: Reports: no symptoms Genitourinary: Reports: no symptoms Neurologic/Psychiatric: Reports: no symptoms Subjective alert and awake no sz since admission Objective Objective Last 24 Hour Vital Signs Date Time Temp Pulse Resp B/P Pulse Ox O2 Delivery O2 Flow Rate FiO2 03/12/17 08:00 97.0 60 18 117/66 100 Room Air 03/12/17 05:19 96.1 03/12/17 04:00 97.1 70 20 120/74 97 Room Air 03/12/17 00:35 96.1 65 20 116/69 97 Room Air 03/11/17 20:00 60 03/11/17 20:00 97.9 56 18 123/65 99 Room Air 03/11/17 16:12 49 03/11/17 16:00 97.9 48 20 101/54 98 Room Air 03/11/17 13:32 55 03/11/17 12:00 97.0 67 19 122/72 98 Room Air Intake and Output 03/11/17 03/12/17 19:00 07:00 Intake Total 500 ml 240 ml Balance 500 ml 240 ml Intake Oral 500 ml 240 ml # Voids 1 1 Laboratory Tests 03/12/17 05:30: White Blood Count 4.6L, Red Blood Count 4.74, Hemoglobin 13.9L, Hematocrit 42.3 , Mean Corpuscular Volume 89, Mean Corpuscular Hemoglobin 29.4, Mean Corpuscular Hemoglobin Concent 33.0, Red Cell Distribution Width 13.8, Platelet Count 237, Mean Platelet Volume 6.3L, Neutrophils (%) (Auto) , Lymphocytes (%) ( Auto) , Monocytes (%) (Auto) , Eosinophils (%) (Auto) , Basophils (%) (Auto) , Sodium Level 142, Potassium Level 3.8, Chloride Level 103, Carbon Dioxide Level 28, Anion Gap 11, Blood Urea Nitrogen 13, Creatinine 1.0, Estimat Glomerular Filtration Rate > 60, Glucose Level 99, Calcium Level 9.3, Troponin I < 0.30, HIV (1&2) Antibody Rapid Negative Height (Feet): 5 Height (Inches): 11.00 Weight (Pounds): 148 Objective HEAD AND NECK: No JVP. No LAD. No thyromegaly. Extraocular movement intact. Pupils are reactive to light and accommodation. LUNGS: Clear to auscultation. CARDIAC: Regular rate and rhythm. S1 and S2. No murmur. No rub. ABDOMEN: Soft, nontender, and nondistended. EXTREMITIES: No edema. No clubbing. No cyanosis. LINDSAY NEVAREZ Mar 12, 2017 09:23
[2017-03-12] MEDS ORDERED: D5 1/2NS 1000ml IV ONE (11:29)
--- NOTE | 2017-03-14 15:48 | Discharge Summary ---
Discharge Summary Hospital Course Date of Admission Mar 10, 2017 at 19:24 Date of Discharge Mar 12, 2017 at 11:30 Admitting Diagnosis CHEST PAIN HPI Mauricio Lim is a 27 year old male who was admitted on Mar 10, 2017 at 19:24 for Chest Pain Hospital Course [id number] Discharge Discharge Disposition Patient left AMA Discharge Diagnoses: Milla Negron NP Mar 14, 2017 15:47
--- NOTE | 2017-03-15 17:45 | Discharge Summary 2 SIG ---
DATE OF ADMISSION: 03/10/2017 DATE OF DISCHARGE: 03/12/2017 CONSULTANTS: 1. Yesenia Sandhu M.D. 2. eunice Billingsley M.D. 3. Lv Chang M.D. 4. Nasir Rodrigues M.D. 5. Melchor Cuellar M.D. BRIEF HOSPITAL COURSE: The patient is a 27-year-old male with a history of seizure presented with exacerbation of seizure and afterwards had slight chest pain, presented to the ED for evaluation of seizures. On evaluation at ED, he was given IV resuscitation and was given IV Keppra. Laboratories showed potassium of 5.3 and creatinine was 1.3. WBC was 4.9. EKG showed diffuse ST elevation with early depolarization. The patient also complained of chest pain. Initial troponin was negative. He was given morphine and Kayexalate and was admitted to telemetry for seizure disorder, chest pain, hyperkalemia, and acute renal failure. He was placed on seizure precautions. Toxicology panel was positive for marijuana. His Keppra was increased to 1000 mg b.i.d. He was also started on IV hydration. Renal ultrasound done was negative and echocardiogram showed no wall motion abnormalities with left ventricular ejection slightly below normal at 45% to 50%, which could be due to underlying left ventricular hypertrophy. Troponins were negative. Chest pain was assessed to be likely due to musculoskeletal tenderness during a seizure event. There was no evidence of sepsis and was observed off antibiotic treatment. HIV serology was negative. Full treatment was not carried out as the patient signed out against medical advice. FINAL DIAGNOSES: 1. Posttraumatic seizure disorder with acute exacerbation. 2. Bipolar disorder. 3. Acute renal failure. 4. Hyperkalemia. 5. Chest pain most likely due to musculoskeletal tenderness. 6. Polysubstance abuse. FINAL DISPOSITION: The patient left AMA. Peter Holguin D.O. I have been assigned to dictate discharge summary on this account and I was not involved in the patient's management. Milla Negron N.P. DR: RAVI JOB#: [id number] CC: ALEXIA
== END 2017-03-12 11:30 | disposition left against medical advice (07) | DRG 53 ==
LOC: EDBD 11:24 → EMR 11:44 → EDBEDREQ 19:13 → 2E 19:24 → 3E 03-11 23:28
DX: G40.909 Epilepsy, unspecified, not intractable, without status epilepticus (principal); N17.9 Acute kidney failure, unspecified; E87.5 Hyperkalemia; Z88.0 Allergy status to penicillin; R07.89 Other chest pain; F31.9 Bipolar disorder, unspecified; F90.9 Attention-deficit hyperactivity disorder, unspecified type; F17.200 Nicotine dependence, unspecified, uncomplicated; Z96.642 Presence of left artificial hip joint; F19.10 Other psychoactive substance abuse, uncomplicated; Y24.9XXS Unspecified firearm discharge, undetermined intent, sequela
CPT/HCPCS: 36415; 71010; 76775; 80048; 80053; 80061; 80299; 80300; 80329; 82550; 84443; 84484; 85025; 85610; 85730; 86140; 86703; 89050; 93005; 93306

== ENCOUNTER 2017-05-09 09:10 | Emergency (ER) | payer OTHER ==
[~2017-05-09] VITALS: Ht 182.9 cm; Wt 77.1 kg
[~2017-05-09 09:10] MED LIST: GABAPENTIN300 MG ORAL; KEPPRA500 M4 ORAL; LATUDA20 MG PO
[2017-05-09 09:15] VITALS: BP 118/57
[2017-05-09] MEDS ORDERED: levETIRAcetam 500mg/NS100ml 100 ML IVPB ONE (09:30)
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
[2017-05-09 09:58] LABS: EOSINOPHILS % (AUTO) 2.9 % (0.0-3.0); LYMPHOCYTES % (AUTO) 51.1 % (20.0-45.0); MEAN CORPUSCULAR HEMOGLOBIN 28.3 PG (27.0-31.0); MEAN CORPUSCULAR HGB CONC 31.1 G/DL (32.0-36.0); MEAN CORPUSCULAR VOLUME 91 FL (80-99); MEAN PLATELET VOLUME 6.1 FL (6.5-10.1); MONOCYTES % (AUTO) 12.8 % (1.0-10.0); NEUTROPHILS % (AUTO) 30.3 % (45.0-75.0); PLATELET COUNT 240 K/UL (150-450); RED BLOOD COUNT 5.05 M/UL (4.70-6.10); WHITE BLOOD COUNT 5.5 K/UL (4.8-10.8)
[2017-05-09 10:08] LABS: ALANINE AMINOTRANSFERASE 16 U/L (3-41); ALBUMIN/GLOBULIN RATIO 1.9 (1.0-2.7); ANION GAP 23 (5-15); ASPARTATE AMINO TRANSFERASE 19 U/L (5-40); CALCIUM 9.3 mg/dL (8.6-10.2); CARBON DIOXIDE 18 mEQ/L (20-30); CHLORIDE 98 mEQ/L (98-107); CREATININE 1.2 mg/dL (0.7-1.2); GLOMERULAR FILTRATION RATE > 60 mL/min (>60); HEMOLYSIS 4; SODIUM 139 mEQ/L (135-145); TOTAL PROTEIN 6.8 g/dL (6.6-8.7)
[2017-05-09 10:46] VITALS: BP 118/69
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
[2017-05-09 11:43] VITALS: BP 115/64
[2017-05-09 12:11] VITALS: BP 116/67
== END 2017-05-09 12:14 | disposition home or self-care (01) ==
LOC: EDBD 09:10 → EMR 09:28
DX: G40.409 Other generalized epilepsy and epileptic syndromes, not intractable, without status epilepticus (principal); Z91.012 Allergy to eggs; Z88.0 Allergy status to penicillin; Z91.018 Allergy to other foods
CPT/HCPCS: 36415; 70450; 80053; 85025; 96361; 96374; 99284; J1953

== ENCOUNTER 2018-03-09 12:11 | Emergency (ER) | payer OTHER ==
[~2018-03-09] VITALS: Ht 185.4 cm; Wt 86.2 kg
[2018-03-09 12:21] VITALS: BP 141/66
[2018-03-09] MEDS ORDERED: Fluorescein Strips BOTH EYES ONE (12:30)
[2018-03-09] MEDS ORDERED: Tetracaine 0.5% Opth 4ml Soln BOTH EYES ONE (12:30)
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
[2018-03-09] MEDS ORDERED: Acetaminophen 650mg/20.3ml NG ONE (13:00)
[2018-03-09] MEDS ORDERED: Metoclopramide 10mg/2ml Inj IM ONE (13:15)
[2018-03-09] MEDS ORDERED: REGLAN10 MG ORAL (14:13)
[2018-03-09] MEDS ORDERED: Ketorolac 60mg Inj IM ONE (14:15)
[2018-03-09 14:19] VITALS: BP 134/65
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
== END 2018-03-09 14:19 | disposition home or self-care (01) ==
LOC: EMR 12:30
DX: H57.13 Ocular pain, bilateral (principal); R51 Headache; J45.909 Unspecified asthma, uncomplicated; Z91.012 Allergy to eggs; Z88.0 Allergy status to penicillin; Z91.018 Allergy to other foods
CPT/HCPCS: 70450; 96372; 99283; J2765

== ENCOUNTER 2018-04-12 10:38 | Emergency (ER) | payer OTHER ==
[~2018-04-12] VITALS: Ht 175.3 cm; Wt 86.2 kg
[~2018-04-12 10:38] MED LIST changes: +REGLAN10 MG ORAL
[2018-04-12] MEDS ORDERED: LORazepam Inj 2mg/ml 1ml IV ONE (10:45)
[2018-04-12] MEDS ORDERED: levETIRAcetam 500 MG in D5W 110 ML IV ONE (10:45)
[2018-04-12 10:50] VITALS: BP 144/93
[2018-04-12 11:00] VITALS: BP 102/66
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
[2018-04-12 11:07] LABS: HEMATOCRIT 53.7 % (42.0-52.0); HEMOGLOBIN 17.1 G/DL (14.2-18.0); MEAN CORPUSCULAR VOLUME 89 FL (80-99); PLATELET COUNT 217 K/UL (150-450); RED BLOOD COUNT 6.02 M/UL (4.70-6.10); RED CELL DISTRIBUTION WIDTH 13.6 % (11.6-14.8)
[2018-04-12 11:12] LABS: ANION GAP 29 mmol/L (5-15); BLOOD UREA NITROGEN 18 mg/dL (7-18); CALCIUM 10.1 MG/DL (8.5-10.1); CARBON DIOXIDE 11 MMOL/L (21-32); CHLORIDE 100 MMOL/L (98-107); CREATININE 1.7 MG/DL (0.55-1.30); POTASSIUM 3.4 MMOL/L (3.5-5.1); SODIUM 140 MMOL/L (136-145)
[2018-04-12 11:20] LABS: ALANINE AMINOTRANSFERASE 24 U/L (12-78); ALBUMIN/GLOBULIN RATIO 1.2 (1.0-2.7); ALKALINE PHOSPHATASE 59 U/L (46-116); ASPARTATE AMINO TRANSFERASE 19 U/L (15-37); BILIRUBIN,TOTAL 0.3 MG/DL (0.2-1.0); CREATINE KINASE 170 U/L (26-308)
[2018-04-12 12:00] VITALS: BP 111/67
[2018-04-12 13:57] LABS: ALANINE AMINOTRANSFERASE 26 U/L (12-78); ALBUMIN 4.5 G/DL (3.4-5.0); ALBUMIN/GLOBULIN RATIO 1.3 (1.0-2.7); ALKALINE PHOSPHATASE 48 U/L (46-116); ANION GAP 7 mmol/L (5-15); ASPARTATE AMINO TRANSFERASE 25 U/L (15-37); BILIRUBIN,TOTAL 0.4 MG/DL (0.2-1.0); BLOOD UREA NITROGEN 17 mg/dL (7-18); CALCIUM 9.6 MG/DL (8.5-10.1); CARBON DIOXIDE 27 MMOL/L (21-32); CHLORIDE 104 MMOL/L (98-107); CREATININE 1.2 MG/DL (0.55-1.30); SODIUM 138 MMOL/L (136-145)
[2018-04-12 14:03] LABS: POTASSIUM 6.1 MMOL/L (3.5-5.1)
[2018-04-12 14:55] VITALS: BP 115/71
[2018-04-12] MEDS ORDERED: ROBAXIN500 MG PO (14:58)
[2018-04-12] MEDS ORDERED: GABAPENTIN300 MG ORAL (14:58)
[2018-04-12] MEDS ORDERED: KEPPRA1000 MG ORAL (14:58)
[2018-04-12] MEDS ORDERED: Morphine Sulfate 4mg/ml Inj (IV USE ONLY) IVP ONE (15:00)
[2018-04-12 15:45] VITALS: BP_SYST 106; BP_SYST 115; BP_DIAS 71; BP_DIAS 99
--- NOTE | 2018-04-15 17:35 | Cardiology Report ---
APPROVED REPORT EKG Measurement Heart [id number] Normal sinus rhythm with sinus arrhythmia Minimal voltage criteria for LVH, may be normal variant ST elevation, consider early repolarization, pericarditis, or injury Abnormal QRS-T angle, consider primary T wave abnormality Abnormal ECG
== END 2018-04-12 15:45 | disposition home or self-care (01) ==
LOC: EDBD 10:38 → EMR 11:03
DX: G40.409 Other generalized epilepsy and epileptic syndromes, not intractable, without status epilepticus (principal); J45.909 Unspecified asthma, uncomplicated; R11.10 Vomiting, unspecified; Z88.0 Allergy status to penicillin; Z91.012 Allergy to eggs; Z91.018 Allergy to other foods
CPT/HCPCS: 36415; 80053; 82550; 84132; 85007; 85025; 93005; 96361; 96374; 96375; 99285; J1953; J2270; J2405